=== PATIENT | female | born 1995 ===

== ENCOUNTER 2018-09-19 17:21 | Emergency (ER) | payer MEDICAID, OTHER ==
[2018-09-19 17:43] VITALS: BP 126/80; PULSE 76; RESP 18; TEMP 98; O2SAT 100
--- NOTE | 2018-09-19 18:26 | C.PDOC ---
History Of Present Illness 23 y/o female presents to the ED for evaluation of a panic attack that occurred at work today. Patient states approximately 3 hours ago she suddenly developed SOB, panic, and a sense of impending doom. She has never had similar symptoms in the past. Denies any recent alcohol, cocaine, marijuana, or increased stressed. On arrival to the ED, patient is asymptomatic. Time Seen by Provider: 09/19/18 18:18 Chief Complaint (Nursing): Anxiety History Per: Patient History/Exam Limitations: no limitations Onset/Duration Of Symptoms: Hrs Current Symptoms Are (Timing): Gone Modifying Factor(s): None Associated Symptoms: Anxiety Past Medical History Reviewed: Historical Data, Nursing Documentation, Vital Signs Vital Signs: Last Vital Signs Temp 98 F 09/19/18 17:42 Pulse 76 09/19/18 17:42 Resp 18 09/19/18 17:42 BP 126/80 09/19/18 17:42 Pulse Ox 100 09/19/18 17:42 Surgical History: No Surg Hx Family History: States: Unknown Family Hx - Social History Hx Tobacco Use: No Hx Alcohol Use: No Hx Substance Use: No Review Of Systems Constitutional: Negative for: Fever Eyes: Negative for: Vision Change Cardiovascular: Negative for: Chest Pain, Palpitations Respiratory: Positive for: Shortness of Breath (now resolved) Gastrointestinal: Negative for: Nausea, Vomiting Neurological: Negative for: Weakness, Dizziness Psych: Positive for: Anxiety (panic, now resolved). Negative for: Suicidal ideation Physical Exam - Physical Exam Appears: Well, Non-toxic, No Acute Distress Skin: Warm, Dry Head: Atraumatic, Normacephalic Eye(s): bilateral: Normal Inspection Neck: Normal ROM Chest: Symmetrical Cardiovascular: Rhythm Regular, No Murmur Respiratory: Normal Breath Sounds, No Accessory Muscle Use Extremity: Bilateral: Atraumatic, Normal Color And Temperature Pulses: Left Dorsalis Pedis: Normal, Right Dorsalis Pedis: Normal Neurological/Psych: Oriented x3 Gait: Steady ED Course And Treatment O2 Sat by Pulse Oximetry: 100 (RA) Pulse Ox Interpretation: Normal Medical Decision Making Medical Decision Making: ? panic attack low risk of etoh/cannabis abuse, stimulant abuse educated with ? insight Disposition Doctor Will See Patient In The: Office Counseled Patient/Family Regarding: Studies Performed, Diagnosis - Disposition Referrals: [facility] [Outside] [facility] [Outside] [facility] [Outside] [facility] [facility] [employer] [Outside] Disposition: HOME/ ROUTINE Disposition Time: 18:25 Condition: GOOD Additional Instructions: lifestyle precautions as discussed outpatient follow-up with outpatient psych services as needed. Instructions: Anxiety, Adult (DC), Panic Disorder (DC) Forms: [facility] (Bulgarian), Work Excuse - Clinical Impression Clinical Impression: Anxiety attack - Scribe Statement The provider has reviewed the documentation as recorded by the Poli Dubois Provider Attestation: All medical record entries made by the Poli were at my direction and personally dictated by me. I have reviewed the chart and agree that the record accurately reflects my personal performance of the history, physical exam, medical decision making, and the department course for this patient. I have also personally directed, reviewed, and agree with the discharge instructions and disposition.
== END 2018-09-19 18:39 | disposition home or self-care (01) ==
LOC: C.ER 17:21
DX: F41.0 Panic disorder [episodic paroxysmal anxiety] (principal)